=== PATIENT | female | born 1965 | race Caucasian/White ===

== ENCOUNTER → 2023-05-24 16:39 | Outpatient (REF) | payer BC, SELFPAY ==
[2023-05-24 17:28] LABS: % Basophils 0.8 % (0-2); % Eosinophils 7.1 % (0-6); % Immature Granulocytes 0.1 % (0-0.5); % Lymphocytes 26.9 % (20.5-51.1); % Monocytes 7.8 % (1.7-9.3); % Neutrophils 57.3 % (42.2-75.2); Absolute Basophils 0.1 10^3/uL (0-0.2); Absolute Eosinophils 0.5 10^3/uL (0-0.7); Absolute Monocytes 0.6 10^3/uL (0.1-0.6); Absolute Neutrophils 4.2 10^3/uL (1.4-6.5); Hematocrit 37.6 % (37.0-47.0); Mean Corp Hgb Conc. 31.9 g/dL (33.0-37.0); Mean Corpuscular Hgb 27.1 pg (27.0-31.0); Mean Corpuscular Volume 84.9 fL (81.0-99.0); Mean Platelet Volume 9.7 fL (7.4-10.4); Nucleated Red Blood Cells % 0 %; Platelet Count 325 10^3/uL (130-400); Red Blood Cell Count 4.43 10^6/uL (4.20-5.40); Red Cell Dist. Width 16.5 % (11.5-14.5); White Blood Cell Count 7.3 10^3/uL (4.8-10.8)
[2023-05-24 17:36] LABS: Erythrocyte Sed Rate 37 mm/hour (0-20)
[2023-05-24 17:41] LABS: ALT (SGPT) 15 U/L (0-35); AST (SGOT) 25 U/L (14-36); Albumin 3.8 g/dl (3.5-5.0); Alkaline Phosphatase 91 U/L (38-126); Blood Urea Nitrogen 14 mg/dl (7-17); Calcium 9.2 mg/dl (8.4-10.2); Carbon Dioxide 29 mmol/L (22-30); Chloride 102 mmol/L (98-107); Glucose 96 mg/dl (70-99); HDL Cholesterol 50 mg/dl; LDL Cholesterol, Calculated 62 mg/dl; Potassium 4.2 mmol/L (3.5-5.1); Sodium 136 mmol/L (135-145); Total Bilirubin 0.4 mg/dl (0.2-1.3); Total Cholesterol 139 mg/dl (50-199); Total Protein 7.5 g/dl (6.3-8.2); Triglyceride 139 mg/dl (10-149); Very Low Density Lipoprotein 27 mg/dl (0-30); eGFR > 60.00
[2023-05-24 18:30] LABS: Hepatitis B Core Ab, Total Negative (Negative); Hepatitis C Antibody Negative (Negative)
[2023-05-24 18:34] LABS: Hepatitis A Antibody, Total Negative (Negative)
== END ==
LOC: REG 16:39
PROVIDERS: ATTENDING PHYSICIAN Internal Medicine; FAMILY PHYSICIAN Student in an Organized Health Care Education/Training Program
DX: M05.79 Rheumatoid arthritis with rheumatoid factor of multiple sites without organ or systems involvement (principal); Z51.81 Encounter for therapeutic drug level monitoring
CPT/HCPCS: 36415; 80053; 80061; 85025; 85652; 86140; 86704; 86708; 86803

== ENCOUNTER → 2023-06-10 09:52 | Outpatient (REF) | payer BC, SELFPAY ==
[2023-06-13 18:18] LABS: Quantiferon Mitogen minus NIL 2.98 IU/mL; Quantiferon NIL 0.02 IU/mL; Quantiferon TB Gold Plus Negative (Negative)
== END ==
LOC: CLAB 09:52
PROVIDERS: ATTENDING PHYSICIAN Internal Medicine; FAMILY PHYSICIAN Student in an Organized Health Care Education/Training Program
DX: M05.79 Rheumatoid arthritis with rheumatoid factor of multiple sites without organ or systems involvement (principal); Z51.81 Encounter for therapeutic drug level monitoring
CPT/HCPCS: 36415; 86480

== ENCOUNTER → 2024-02-24 11:34 | Outpatient (REF) | payer BC, SELFPAY ==
[2024-02-24 12:18] LABS: ALT (SGPT) 16 U/L (0-35); AST (SGOT) 24 U/L (14-36); Albumin 4.2 g/dl (3.5-5.0); Alkaline Phosphatase 66 U/L (38-126); Blood Urea Nitrogen 20 mg/dl (7-17); Calcium 9.8 mg/dl (8.4-10.2); Carbon Dioxide 26 mmol/L (22-30); Chloride 104 mmol/L (98-107); Glucose 114 mg/dl (70-99); Potassium 4.9 mmol/L (3.5-5.1); Sodium 143 mmol/L (135-145); Total Bilirubin 0.3 mg/dl (0.2-1.3); Total Protein 7.6 g/dl (6.3-8.2); eGFR > 60.00
[2024-02-24 12:47] LABS: % Basophils 0.3 % (0-2); % Eosinophils 3.7 % (0-6); % Immature Granulocytes 0.3 % (0-0.5); % Lymphocytes 19.4 % (20.5-51.1); % Monocytes 7.8 % (1.7-9.3); % Neutrophils 68.5 % (42.2-75.2); Absolute Eosinophils 0.3 10^3/uL (0-0.7); Absolute Lymphocytes 1.7 10^3/uL (1.2-3.4); Absolute Monocytes 0.7 10^3/uL (0.1-0.6); Hematocrit 39.2 % (37.0-47.0); Hemoglobin 12.6 g/dL (12.0-16.0); Mean Corp Hgb Conc. 32.1 g/dL (33.0-37.0); Mean Corpuscular Hgb 29.4 pg (27.0-31.0); Mean Corpuscular Volume 91.6 fL (81.0-99.0); Mean Platelet Volume 10.7 fL (7.4-10.4); Nucleated Red Blood Cells % 0 %; Platelet Count 441 10^3/uL (130-400); Red Blood Cell Count 4.28 10^6/uL (4.20-5.40); Red Cell Dist. Width 15.9 % (11.5-14.5); White Blood Cell Count 8.7 10^3/uL (4.8-10.8)
[2024-02-24 13:18] LABS: Erythrocyte Sed Rate 29 mm/hour (0-20)
== END ==
LOC: CLAB 11:34
PROVIDERS: ATTENDING PHYSICIAN Internal Medicine; FAMILY PHYSICIAN Internal Medicine Geriatric Medicine
DX: M05.79 Rheumatoid arthritis with rheumatoid factor of multiple sites without organ or systems involvement (principal); Z51.81 Encounter for therapeutic drug level monitoring
CPT/HCPCS: 36415; 80053; 85025; 85652; 86140

== ENCOUNTER → 2024-05-08 19:36 | Outpatient (REF) | payer BC, SELFPAY | LOC: WDC 19:36 | PROVIDERS: ATTENDING PHYSICIAN Obstetrics & Gynecology Gynecology; FAMILY PHYSICIAN Internal Medicine Geriatric Medicine | DX: Z12.31 Encounter for screening mammogram for malignant neoplasm of breast (principal) | CPT/HCPCS: 77063; 77067 ==

== ENCOUNTER → 2024-06-26 12:44 | Outpatient (REF) | payer BC, SELFPAY ==
[2024-06-26 13:39] LABS: % Basophils 0.5 % (0-2); % Immature Granulocytes 0.2 % (0-0.5); % Lymphocytes 27.7 % (20.5-51.1); % Monocytes 9.3 % (1.7-9.3); % Neutrophils 56.3 % (42.2-75.2); Absolute Eosinophils 0.4 10^3/uL (0-0.7); Absolute Lymphocytes 1.8 10^3/uL (1.2-3.4); Absolute Monocytes 0.6 10^3/uL (0.1-0.6); Absolute Neutrophils 3.7 10^3/uL (1.4-6.5); Hematocrit 40.4 % (37.0-47.0); Hemoglobin 12.7 g/dL (12.0-16.0); Mean Corp Hgb Conc. 31.4 g/dL (33.0-37.0); Mean Corpuscular Volume 85.8 fL (81.0-99.0); Mean Platelet Volume 9.8 fL (7.4-10.4); Nucleated Red Blood Cells % 0 %; Platelet Count 320 10^3/uL (130-400); Red Blood Cell Count 4.71 10^6/uL (4.20-5.40); Red Cell Dist. Width 17.2 % (11.5-14.5); White Blood Cell Count 6.5 10^3/uL (4.8-10.8)
[2024-06-26 13:45] LABS: ALT (SGPT) 20 U/L (0-35); AST (SGOT) 25 U/L (14-36); Albumin 4.4 g/dl (3.5-5.0); Alkaline Phosphatase 79 U/L (38-126); Blood Urea Nitrogen 19 mg/dl (7-17); Calcium 9.8 mg/dl (8.4-10.2); Carbon Dioxide 24 mmol/L (22-30); Chloride 102 mmol/L (98-107); Glucose 106 mg/dl (70-99); Potassium 4.5 mmol/L (3.5-5.1); Sodium 138 mmol/L (135-145); Total Bilirubin 0.6 mg/dl (0.2-1.3); Total Protein 7.8 g/dl (6.3-8.2); eGFR > 60.00
[2024-06-26 14:40] LABS: Erythrocyte Sed Rate 30 mm/hour (0-20)
== END ==
LOC: CLAB 12:44
PROVIDERS: ATTENDING PHYSICIAN Internal Medicine; FAMILY PHYSICIAN Internal Medicine Geriatric Medicine
DX: M05.79 Rheumatoid arthritis with rheumatoid factor of multiple sites without organ or systems involvement (principal)
CPT/HCPCS: 36415; 80053; 85025; 85652; 86140

== ENCOUNTER → 2024-07-16 17:53 | Outpatient (REF) | payer BC, SELFPAY | LOC: RAD 17:53 | PROVIDERS: ATTENDING PHYSICIAN Internal Medicine; FAMILY PHYSICIAN Internal Medicine Geriatric Medicine | DX: M54.2 Cervicalgia (principal); M54.50 Low back pain, unspecified; M46.1 Sacroiliitis, not elsewhere classified; L40.50 Arthropathic psoriasis, unspecified; M06.9 Rheumatoid arthritis, unspecified | CPT/HCPCS: 72050; 72100; 72202 ==

== ENCOUNTER 2024-08-22 12:23 | Emergency (ER) | payer BC, SELFPAY ==
[2024-08-22 12:24] VITALS: BP 139/95
[2024-08-22 14:10] VITALS: BP 99/65; BMI 38.1
--- NOTE | 2024-08-22 14:20 | ED.GENMED ---
History of Present Illness
General
Chief Complaint: Allergic Reaction
Source: patient
Exam Limitations: none
Time Seen by Provider: 08/22/24 14:02
History of Present Illness
History of Present Illness:
59-year-old female with history of rheumatoid arthritis has been on Decadron for quite some time and weaned off of this and last dose of Decadron was 4 days ago. She has been under the care of rheumatology. She has had a rash for the past 3 weeks
at which they presume is from the Decadron. She has been using Benadryl and Pepcid regularly. She notes swelling to her arms and legs as well as a 10 pound weight gain in 4 days. She notes tightness in the throat and at times difficulty
breathing. No prior diagnosis of CHF. No vomiting. No chest pain. She states her skin feels tight. She also recently started Plaquenil and Arava for her rheumatoid arthritis.
Past History
Past History
ED Past Medical History: Other (Rheumatoid arthritis, fibromyalgia)
ED Past Surgical History: None
Social History
Tobacco: Non-smoker
Personal:
Living: with family
Phy Exam
Physical Exam
Physical Exam:
General: Well-appearing female no acute respiratory distress
HEENT normocephalic atraumatic posterior pharynx pale no obvious swelling
Heart: Regular rate and rhythm
Lungs clear no wheeze or rales skin: Urticarial rash over the arms and legs as well as the thorax
Extremities: Pitting edema bilateral lower extremities. The upper extremity seems swollen as well
Course
Orders/Labs/Results
Orders:
Orders
08/22/24 12:26
Electrocardiogram (*1) Urgent
Reason for Study: Palpitations
08/22/24 12:27
EKG- Treatment ONCE
08/22/24 14:18
CR Chest - 2 Views Urgent
Comment:
Reason For Exam: sob
08/22/24 14:19
Diphenhydramine [Benadryl] 25 mg IV NOW STA
Famotidine [Pepcid] 20 mg IV NOW STA
08/22/24 14:38
Complete Blood Count/With Diff Urgent
Comprehensive Metabolic Panel Urgent
NT-proBNP Urgent
EPINEPHrine PF [Adrenalin] 0.3 mg IM NOW STA
Abnormal Lab Results
08/22/24
14:38
MCHC 31.7 L g/dL
(33.0-37.0)
RDW 18.3 H %
(11.5-14.5)
Monocytes % 11.3 H %
(1.7-9.3)
Eosinophils % 12.1 H %
(0-6)
Carbon Dioxide 31 H mmol/L
(22-30)
Glucose 109 H mg/dl
(70-99)
ALT 36 H U/L
(0-35)
08/22/24 14:38
08/22/24 14:38
Vital Signs
Initial and Last Documented VS:
Initial Vital Signs
Temp Pulse Resp BP Pulse Ox
98.3 F 104 18 139/95 100
08/22/24 12:24 08/22/24 12:24 08/22/24 12:24 08/22/24 12:24 08/22/24 12:24
Last Documented Vital Signs
Temp Pulse Resp BP Pulse Ox
98.3 F 104 18 125/74 100
08/22/24 12:24 08/22/24 16:06 08/22/24 16:06 08/22/24 16:06 08/22/24 16:06
MDM/Problems Addressed
Differential Diagnosis Includes:
Rash, ongoing, weight gain and edema. The ongoing thought is that the rash may be from her Decadron and she just tapered off of. She did start a new rheumatoid arthritis medication several weeks ago as well as she takes ongoing lisinopril. She
subjectively describes throat multi breathing. There is no respiratory distress. She reacted adversely to prednisone in the past. Labs including bnp pending. Treat initially with IV benadryl and pepcid
*Critical Care Note
Total Time (30-74mins, 75-104mins- exclusive of procedures): Not Applicable
Update Note
Update Note:
Patient reexamined no respiratory distress. She received Benadryl Pepcid and subsequently epinephrine. Subjectively her throat feels better but the rash has not improved. She has reacted to prednisone Solu-Medrol and Decadron. She also is on
lisinopril. No signs of airway compromise at this time. Rash is ongoing. Will continue Benadryl and Pepcid. Stable for discharge
ED Attending Note
-
Portions of this chart may have been created with voice recognition software.� Occasional wrong word or��sound alike� substitutions may have occurred due to the inherent limitations of voice recognition software.
Discharge Plan
Departure
Patient Disposition: Home (Routine Discharge)
Date of Disposition: 08/22/24
Time of Disposition: 16:53
Patient with high blood pressure during this ER visit?: No
Discharge Problem:
Urticaria, Edema
Instructions: Hives (DC)
Prescriptions:
New
furosemide [Lasix] 40 mg tablet
40 mg PO DAILY Qty: 5 0RF
No Action
duloxetine 60 MG capsule,delayed release(DR/EC)
60 mg PO BID
gabapentin 300 MG capsule
300 mg PO HS
cetirizine [Zyrtec] 10 mg Tablet
10 mg PO HS
lisinopril 10 mg Tablet
10 mg PO DAILY
infliximab [Remicade] 100 mg Recon Soln
100 mg IV Q6W
Patient Comments:
Q6-8 WEEKS
rosuvastatin 10 mg Tablet
10 mg PO QPM
diphenhydramine HCl [Benadryl] 25 mg Capsule
25 mg PO PRN PRN (Reason: PRE INFUSION)
Referrals:
Brown Sotelo MD [Family Provider] -
Activity Restrictions/Additional Instructions:
Take lasix as directed. Continue benadryl and pepcid. Return if needed, otherwise follow up with your doctor as planned.
Interventions
Interventions:
*Risk Screen - Suicide Last Done: 08/22/24 12:24
*General Assessment Last Done: 08/22/24 12:24
*Neglect/Abuse Screening Last Done: 08/22/24 12:24
*ED- Fall Risk Assessment Last Done: 08/22/24 14:10
*ED COVID-19 Vaccine History Last Done: 08/22/24 12:24
ED- Cardiac Assessment Last Done: 08/22/24 14:10
ED- Pulmonary Assessment Last Done: 08/22/24 14:10
ED-Skin Assessment Last Done: 08/22/24 14:10
Discharge Date and Time
Print Language: [place] CITIZ[place]
[2024-08-22 14:41] LABS: % Basophils 0.5 % (0-2); % Eosinophils 12.1 % (0-6); % Immature Granulocytes 0.4 % (0-0.5); % Lymphocytes 30.4 % (20.5-51.1); % Monocytes 11.3 % (1.7-9.3); % Neutrophils 45.3 % (42.2-75.2); Absolute Eosinophils 0.7 10^3/uL (0-0.7); Absolute Lymphocytes 1.7 10^3/uL (1.2-3.4); Absolute Monocytes 0.6 10^3/uL (0.1-0.6); Absolute Neutrophils 2.5 10^3/uL (1.4-6.5); Hematocrit 41.9 % (37.0-47.0); Hemoglobin 13.3 g/dL (12.0-16.0); Mean Corp Hgb Conc. 31.7 g/dL (33.0-37.0); Mean Corpuscular Hgb 27.9 pg (27.0-31.0); Mean Corpuscular Volume 87.8 fL (81.0-99.0); Mean Platelet Volume 9.3 fL (7.4-10.4); Nucleated Red Blood Cells % 0 %; Platelet Count 239 10^3/uL (130-400); Red Blood Cell Count 4.77 10^6/uL (4.20-5.40); Red Cell Dist. Width 18.3 % (11.5-14.5); White Blood Cell Count 5.6 10^3/uL (4.8-10.8)
[2024-08-22] MEDS: BENADRYL 25 MG IV (14:56)
[2024-08-22] MEDS: PEPCID 20 MG IV (14:56)
[2024-08-22] MEDS: ADRENALIN 0.3 MG IM (14:56)
[2024-08-22 15:14] LABS: ALT (SGPT) 36 U/L (0-35); AST (SGOT) 30 U/L (14-36); Albumin 3.7 g/dl (3.5-5.0); Alkaline Phosphatase 87 U/L (38-126); Blood Urea Nitrogen 9 mg/dl (7-17); Calcium 9.1 mg/dl (8.4-10.2); Carbon Dioxide 31 mmol/L (22-30); Chloride 103 mmol/L (98-107); Estimated Creatinine Clearance 102 ml/min; Glucose 109 mg/dl (70-99); Sodium 137 mmol/L (135-145); Total Bilirubin 0.5 mg/dl (0.2-1.3); Total Protein 6.4 g/dl (6.3-8.2); eGFR > 60.00
[2024-08-22 15:15] LABS: NT-proBNP 74.5 pg/ml
[2024-08-22 15:28] VITALS: BP 111/78
[2024-08-22 16:06] VITALS: BP 125/74
[2024-08-22 17:11] VITALS: BP 110/70
== END 2024-08-22 17:13 | disposition home or self-care (01) ==
LOC: EMR 12:23
PROVIDERS: Physician Assistant; EMERGENCY PHYSICIAN Emergency Medicine; FAMILY PHYSICIAN Internal Medicine Geriatric Medicine
DX: L50.9 Urticaria, unspecified (principal); M79.7 Fibromyalgia; M06.9 Rheumatoid arthritis, unspecified
CPT/HCPCS: 99283; 96374; 96375; 96372; 71046; 80053; 83880; 85025; 93005

== ENCOUNTER → 2024-12-12 09:38 | Outpatient (REF) | payer BC, SELFPAY ==
[2024-12-12 10:30] LABS: Hematocrit 40.0 % (37.0-47.0); Hemoglobin 12.3 g/dL (12.0-16.0); Mean Corp Hgb Conc. 30.8 g/dL (33.0-37.0); Mean Corpuscular Volume 92.4 fL (81.0-99.0); Nucleated Red Blood Cells % 0 %; Platelet Count 329 10^3/uL (130-400); Red Cell Dist. Width 15.3 % (11.5-14.5)
[2024-12-12 10:34] LABS: Urine Character Clear (Clear)
[2024-12-12 10:55] LABS: Urine Red Blood Cell 0-2 /HPF (0-2)
[2024-12-12 11:27] LABS: ALT (SGPT) 26 U/L (0-35); AST (SGOT) 28 U/L (14-36); Albumin 3.7 g/dl (3.5-5.0); Alkaline Phosphatase 70 U/L (38-126); Blood Urea Nitrogen 8 mg/dl (7-17); Calcium 9.5 mg/dl (8.4-10.2); Carbon Dioxide 30 mmol/L (22-30); Chloride 107 mmol/L (98-107); Glucose 101 mg/dl (70-99); Potassium 4.6 mmol/L (3.5-5.1); Sodium 141 mmol/L (135-145); Total Protein 6.6 g/dl (6.3-8.2); eGFR > 60.00
== END ==
LOC: REG 09:38
PROVIDERS: ATTENDING PHYSICIAN Nurse Practitioner Family; FAMILY PHYSICIAN Internal Medicine Geriatric Medicine
DX: I10 Essential (primary) hypertension (principal); E78.00 Pure hypercholesterolemia, unspecified; E55.9 Vitamin D deficiency, unspecified; M06.9 Rheumatoid arthritis, unspecified; R30.0 Dysuria
CPT/HCPCS: 36415; 80053; 81003; 81015; 83880; 84443; 85025; 86308

== ENCOUNTER 2024-12-16 14:16 | Inpatient (IN) | payer BC, SELFPAY ==
[2024-12-16] VITALS (11 sets, daily range): BP systolic 102–139; BP diastolic 62–94; BMI 42.8; BMI 41.8
[2024-12-16] MEDS: TYLENOL 1000 MG PO (08:52)
[2024-12-16] MEDS: TORADOL 15 MG IV ×2 (08:52→21:39)
[2024-12-16 09:05] LABS: Hematocrit 36.5 % (37.0-47.0); Hemoglobin 11.7 g/dL (12.0-16.0); Mean Corp Hgb Conc. 32.1 g/dL (33.0-37.0); Mean Corpuscular Volume 89.9 fL (81.0-99.0); Nucleated Red Blood Cells % 0 %; Platelet Count 280 10^3/uL (130-400); Red Cell Dist. Width 15.1 % (11.5-14.5)
[2024-12-16 09:24] LABS: ALT (SGPT) 21 U/L (0-35); AST (SGOT) 29 U/L (14-36); Albumin 3.5 g/dl (3.5-5.0); Alkaline Phosphatase 59 U/L (38-126); Blood Urea Nitrogen 8 mg/dl (7-17); Calcium 8.9 mg/dl (8.4-10.2); Carbon Dioxide 29 mmol/L (22-30); Chloride 104 mmol/L (98-107); Estimated Creatinine Clearance 123 ml/min; Glucose 108 mg/dl (70-99); Magnesium 1.8 mg/dl (1.6-2.3); Potassium 4.4 mmol/L (3.5-5.1); Sodium 136 mmol/L (135-145); Total Protein 6.6 g/dl (6.3-8.2); eGFR > 60.00
--- NOTE | 2024-12-16 09:34 | ED.GENMED ---
History of Present Illness
General
Chief Complaint: Musculo-Skeletal Complaint
Source: patient
Exam Limitations: none
Time Seen by Provider: 12/16/24 08:06
Nursing documentation reviewed up to this point in time: agreed with
History of Present Illness
History of Present Illness:
Patient presents to ED secondary to worsening left-sided chest pain over the past 2 weeks. Chest pain described as sharp, nonradiating, worse with movement/inspiration, without any alleviating factors. Denies trauma. Denies fever or chills.
Denies nausea or vomiting. Denies recent surgery or travel. Patient has also noted increased lower leg swelling over the past 1 week along with unintentional weight gain of approximately 30 pounds over the past 2 months. Denies recent changes in
medications or diet. Denies recent illness. Patient has been evaluated by her primary care physician and recent blood work and swabs had revealed positive group B strep, for which she is taking Keflex. Denies smoking. There is no family history
of blood clots. However, there is history of early cardiac disease.
Past History
Past History
ED Past Medical History: Other (Rheumatoid arthritis, fibromyalgia)
ED Past Surgical History: None
Social History
Tobacco: Non-smoker
Personal:
Living: with family
Review of Systems
Review of Systems
Allergies reviewed?: Yes
All Other Systems: ROS reviewed and negative except as documented in HPI and ROS
Constitutional: Reports no symptoms; Denies fever
Respiratory: Reports trouble breathing
Cardiac: Reports chest pain
ABD/GI: Reports no symptoms; Denies nausea or vomiting
: Reports no symptoms
Musculoskeletal: Reports no symptoms
Skin: Reports no symptoms
Neurological: Reports no symptoms
Phy Exam
Physical Exam
Physical Exam:
Physical Exam
General: mild painful distress, not acutely ill. afebrile
Head: nc/at. eomi
Neck: supple. no meningeal signs.
Heart: tachycardic
Lungs: no acute respiratory distress. clear bilaterally
Abdomen: normal bowel sounds. not tender.
Neuro: alert and oriented x 3. no focal neurological deficits
Skin: no rash
Psychiatric: well kept. interactive and cooperative
Extremities: LE b/l, nonpitting edema. no calf tenderness.
Scores
Heart Failure Risk
Heart Failure Risk Score: Yes
History of Stroke or TIA: No
History of intubation for respiratory distress: No
Heart rate on ED arrival >/= 110: Yes
SaO2 <90% on arrival on room air: Yes
HR >/=110 during 3min walk test (or too ill to perform test): Yes
ECG has acute ischemic changes: No
Urea >/=12mmol/L (BUN 33.6mg/dL): No
Serum CO2>/=35mmol/L: No
Troponin I or T elevated to GA Level (0.4mg/dL): No
NT-proBNP >/=5,000ng/L (5,000pg/ml): No
HF Risk Score: 3
Admission Status: HIGH RISK 15.9% Consider SNF treatment or admission to hospital
Heart Score for Chest Pain Patients
STEMI patient?: No
History: Slightly or Non-Suspicious
ECG: Normal
Age: >45 - <65 years
Risk Factors: >/= 3 Risk Factors or History of CAD
Troponin: </= Normal Limit
Heart Score for Chest Pain Patients: 3
Heart Score Risk: 2.5% MACE over next 6 weeks
Course
Orders/Labs/Results
Orders:
Orders
12/16/24 08:01
ECG [Electrocardiogram (*1)] Urgent
Reason for Study: Chest Pain
EKG- Treatment ONCE
12/16/24 08:35
Acetaminophen [Tylenol] 1,000 mg PO NOW STA
Ketorolac [Toradol] 15 mg IV NOW STA
CR Chest - 2 Views Urgent
Comment:
Reason For Exam: chest pain
12/16/24 08:54
Complete Blood Count/With Diff Urgent
Comprehensive Metabolic Panel Urgent
D-Dimer Urgent
Magnesium Urgent
NT-proBNP Urgent
Troponin I Urgent
12/16/24 10:00
CT Chest PE Study Urgent
Comment:
Reason For Exam: cp with elevated d-dimer
12/16/24 13:37
Furosemide [Lasix] 20 mg IV NOW STA
12/16/24 13:48
Admit/Transfer Patient As Directed
Co-Sign Provider:
Level of Care: Inpatient admission
Assign to:: Telemetry
Physician / Group: Hospitalist Dr. El
Diagnosis: Shortness of breath , chest pain, volume overload
Reason for Telemetry: Chest Pain syndromes
Date to Stop Telemetry: 12/18/24
Time to Stop Telemetry: 11:00
Reason for Hospitalization: Iv diuresis, echo, frequent lab monitoring
Expected length of stay greater than two midnights?: Yes
ELOS- Estimated Length of Stay in days: 3
I certify the patient meets the requirements for IP care: Yes
PRN Pain Medication Management As Directed
May give lesser potent ordered pain med per pt: Yes
preference::
Protocol:: Medication orders for pain may be administered in a
manner that supports deferring to patient preference
when the pt is:
- Requesting an ordered lesser potent pain medication.
Least to most potent pain medications are defined
as: acetaminophen < NSAID < tramadol < opioids
(morphine, oxycodone, hydromorphone).
- Requesting a lesser dose of the same medication IF
ORDERED.
- Requesting a less intrusive route of administration
if both routes are prescribed by the provider (PO <
IV).
12/16/24 13:53
Code Status As Directed
Resuscitation Status: Full Code
12/18/24 11:00
DC Protocol for Telemetry ONCE
Abnormal Lab Results
12/16/24
08:54
RBC 4.06 L 10^6/uL
(4.20-5.40)
Hgb 11.7 L g/dL
(12.0-16.0)
Hct 36.5 L %
(37.0-47.0)
MCHC 32.1 L g/dL
(33.0-37.0)
RDW 15.1 H %
(11.5-14.5)
Absolute Monos (auto) 1.0 H 10^3/uL
(0.1-0.6)
Lymphocytes % 20.2 L %
(20.5-51.1)
Monocytes % 11.3 H %
(1.7-9.3)
Eosinophils % 6.1 H %
(0-6)
D-Dimer 1.99 H ug/mlFEU
(0.00-0.50)
Glucose 108 H mg/dl
(70-99)
12/16/24 08:54
12/16/24 08:54
Vital Signs
Initial and Last Documented VS:
Initial Vital Signs
Temp Pulse Resp BP Pulse Ox
98.1 F 118 20 139/86 98
12/16/24 07:57 12/16/24 07:57 12/16/24 07:57 12/16/24 07:57 12/16/24 07:57
Last Documented Vital Signs
Temp Pulse Resp BP Pulse Ox
98.1 F 89 21 120/69 95
12/16/24 07:57 12/16/24 14:15 12/16/24 14:15 12/16/24 14:00 12/16/24 14:15
MDM/Problems Addressed
MDM/Problems Addressed:
D-dimer elevated. CT PE study ordered, which did not reveal any acute abnormal findings. However, patient remains tachycardic with hypoxia, requiring supplemental oxygen. In light of patient's unintentional weight gain with lower extremity edema,
patient may require full course of diuresis. Patient will be admitted for further evaluation and treatment.
*Pulse Oximetry
SaO2: 98
Oxygen Mode of Delivery: Room air
Patient hypoxic: yes
*EKG
Interpreted by ED Provider?: Yes
EKG Intrepretation Date: 12/16/24
Heart Rate: 107
Rate: tachycardiac
Rhythm: sinus
[place]: normal axis
Interval: normal interval
*Critical Care Note
Total Time (30-74mins, 75-104mins- exclusive of procedures): Not Applicable
ED Attending Note
-
Portions of this chart may have been created with voice recognition software.� Occasional wrong word or��sound alike� substitutions may have occurred due to the inherent limitations of voice recognition software.
Discharge Plan
Departure
Patient Disposition: Admit
Date of Disposition: 12/16/24
Time of Disposition: 11:26
Admit to: Telemetry
Presentation/result/management discussed w/ accepting MD/DO: Hospitalist
Discharge Problem:
Hypoxia, Chest pain
Interventions
Interventions:
*Risk Screen - Suicide Last Done: 12/16/24 07:57
*General Assessment Last Done: 12/16/24 07:57
*Neglect/Abuse Screening Last Done: 12/16/24 08:44
*ED- Fall Risk Assessment Last Done: 12/16/24 08:44
*ED COVID-19 Vaccine History Last Done: 12/16/24 08:44
ED-Musculoskeletal Assessment Last Done: 12/16/24 08:44
[2024-12-16 09:37] LABS: Troponin I < 0.012 ng/ml
[2024-12-16 09:57] LABS: D-Dimer 1.99 ug/mlFEU (0.00-0.50)
[2024-12-16] MEDS: LASIX 20 MG IV ×2 (13:45→16:00)
--- NOTE | 2024-12-16 13:46 | HPS.HSE ---
Addendum entered and electronically signed by Diana El MD 12/16/24 18:45:
I personally performed a history and physical exam of the patient and discussed management with the resident. I reviewed the resident's note and agree with the documented findings and plan of care HPI/CC.
GENERAL: well developed, well nourished, obese female in no apparent distress
HEENT: NC/AT -- O2 NC in place
HEART: regular rate and rhythm, +S1, +S2
LUNGS : clear to auscultation bilaterally
ABDOM: soft, nontender, nondistended, + bowel sounds
EXT: no cyanosis, clubbing--2+ LE edema bilaterally with cool redness to both legs from ankles to mid grijalva--reproducible pain to palpation under left breast
NEUROLOGIC: grossly intact
Chest pain/SOB with acute hypoxemic resp insufficiency--Volume overload likely secondary to recent steroid use--pro-BNP WNL so not thinking traditional CHF exacerbation--ADMIT--check ECHO--diuresis, daily weights, I/Os--other possible etiologies
include: musculoskeletal, pericarditis (recent group B strep throat), GERD, pleuritis from RA flare--> less likely PE (neg CT scan), ACS (troponin neg)--check serial troponin, consider cards consult, add PPI celine with steroid use--check ESR, CRP
Recent Strep throat diagnosis with Group B strep--finish Cephalexin course (should cover leg cellulitis but doubt it is cellulitis in the first place)--day 07/26
bilateral LE edema with redness--think more volume retention--if no better with diuresis then check bilateral LE US
possible Obstructive Sleep Apnea--O2 desaturation while sleeping--will need outpt sleep study
Rheumatoid Arthritis/Fibromyalgia--had recent infusion with allergic reaction, which prompted steroid use in the first place, then was allergic to the steroids and switched to another--cont duloxetine
History of AK (2019)/Essential Hypertension--cont meds as able
DVT Proph-- Lovenox
Code status--Full Code
Original Note:
Family Physician
-
Family Physician: Brown Sotelo
Chief Complaint
-
Shortness of breath, Chest pain
History of Present Illness
A 59 y/o female with PMH of Rheumatoid Arthritis, Fibromyalgia, heart attack in 2019, hypertension, hyperlipidemia presents to ED with complaints of shortness of breath, chest pain and bilateral leg swelling. Last night she developed shortness of
breath, worse with inhaling. She could not fall asleep from pain, it was limiting her movements all night. She took 2 baclofen 5 mg, tramadol, it made her sleepy but did not improve her pain. She reports her pain is worse on the left side but it
radiates towards right and back. Pain is sharp and stabbing. Her pain, SOB improves with sitting upright. Also, she has nausea that is worse at night.
Chest pain started 2 weeks ago when she woke up. A week ago she noticed her legs were red and swollen bilaterally. Denies pain. She went to see her PCP, labs were normal, echo was schedule for december. She was tested for strep throat culture was
positive for strep B. She is taking cephalexin 500 mg BID/ since 12/13.
She tried multiple meds for rheumatoid Arthritis without improvement. She tried IV infusion developed rashes. Wash out period was 1 month. She was started on 60mg Dexamethasone. Then she started Arava again developed hives wash out period was 2
weeks. So she was on a supervisor long goods Dexamethasone use, recently she tapered it off.
She has low appetite but gained 30 pounds in last 3 months. 20lbs of it was last 6 weeks.
Medical History
Past Medical History
Past Medical History: Reports Fibromyalgia, HTN, Hypercholesterolemia, AK and Other (rheumatoid arthritis)
Past Surgical History: Reports Orthopedic (broken finger)
Social History
Tobacco: Non-smoker
Alcohol: Occasional
Drug: None
Family History
Family History: Early CAD, CAD, Hypertension and Other (mother-TIA, HTN, CABG)
Allergies / Home Medications
Allergies reflects when Allergies were last updated in [facility].
Home Medications with original date entered in [facility]
Allergy/Medication List:
Prednisone- lip swelling, flushing
Review of Systems
-
History Source: Patient
Constitutional: Reports Weight Gain and Sleep Disturbance
Respiratory: Reports Trouble Breathing
Cardiac: Reports Chest Pain
Abdomen/GI: Reports Nausea and Pain
: Reports No Symptoms
Musculoskeletal: Reports Joint Pain, Muscle Pain and Edema
Skin: Reports Rash
Neurological: Reports No Symptoms
Endocrine: Reports No Symptoms
Hematologic/Lymphatic: Reports No Symptoms
Psych: Reports Calm
Physical Exam
Vital Signs
Vital Signs
Temp Pulse Resp BP Pulse Ox
98.1 F 91 16 121/65 92
12/16/24 07:57 12/16/24 13:00 12/16/24 13:00 12/16/24 13:00 12/16/24 13:00
Physical Exam
General: Well Developed and Well Nourished
HEENT: NormoCephalic, Oxygen and Other (tonsil stones, enlarged tonsils)
Respiratory: Clear
Cardiac: S1/S2, Regular Rhythm and Peripheral Edema
Breast: Deferred by me
GI: Soft, Non Tender and Non Distended
Genito-urinary: Deferred by me
Musculoskeletal: Edema, Left Lower Extremity and Edema, Right Lower Extremity
Skin: Warm, Dry and Rash (bilateral leg erythema ankle to grijalva)
Neuro: Awake and AO x 3
Hematologic/Lymphatic: No Lymphadenopathy
Psych: Calm
Laboratory Results
-
12/16/24 08:54
12/16/24 08:54
Laboratory Results
Total Bilirubin 0.8 mg/dl (0.2-1.3) 12/16/24 08:54
AST 29 U/L (14-36) 12/16/24 08:54
ALT 21 U/L (0-35) 12/16/24 08:54
Alkaline Phosphatase 59 U/L (38-126) 12/16/24 08:54
Troponin I < 0.012 ng/ml 12/16/24 08:54
Impression/Plan
-
Impression
59-year-old female with past medical history of rheumatoid arthritis, fibromyalgia, prior AK in 2019, hypertension, hyperlipidemia presents with shortness of breath chest pain and bilateral leg swelling. Chest pain is sharp, left-sided, worse with
inspiration, radiating to the back, improved sitting upright. She also reports nausea and poor sleep due to pain. Exam and history suggest possible pleuritic chest pain. She also has bilateral leg swelling with a recent weight gain., Raising
concern for heart failure, nephrotic syndrome, or steroid side effects. She has a history of long-term high-dose dexamethasone, recently tapered, and was on leflunomide (Arava).
PLAN
#Volume overload likely secondary to Chronic Steroid use / Possible CHF
-Daily weight, watch I/O
-Lasix 20mg BID
-ECHO
-Monitor electrolytes, renal function
#Chest Pain, Pleuritic, Positional
Differential: Pericarditis vs musculoskeletal vs ACS
-EKG, serial troponin
-PPI (GI irritation with steroid use?)
-CXR-No acute cardiopulmonary process
-Chest CT- No PE or acute abnormality
-Cardiology consult if troponins/EKG abnormal
#Pleuritis from RA
-monitor
-pain control
-ESR/CRP
#DVT-PE
-D- Dimer elevated
-Chest CT - negative for PE
#Acute Pancreatitis
-less likely but will check lipase
-if elevated will consider abdominal USG
#Strep B throat
- 12/13 Cephalexin 500mg BID, PO, 10days
-Continue#D4
#Obstructive Sleep Apnea
-O2 desaturation while sleeping
-O2 prn
#Rheumatoid Arthritis
#Fibromyalgia
#History of AK (2019)
#Hypertension
DVT Prophylaxis: Lovenox
Full Code
--- NOTE | 2024-12-16 15:36 | PTCARENOTE ---
pt presents from ED via stretcher. pt is AAO*3, vss, 99% on 1LO2. pt c/o PAGAN, shallow breathing. pt states pain on b/l chest with deep breaths. pt is oriented to the room. call cutler within the reach. plan of care ongoing.
[2024-12-16 16:30] LABS: Troponin I < 0.012 ng/ml
[2024-12-16 16:45] LABS: Lipase 55 U/L (23-300)
[2024-12-16] MEDS: LOVENOX 40 MG SC (17:30)
[2024-12-16] MEDS: CRESTOR 10 MG PO (17:31)
[2024-12-16] MEDS: ZYRTEC 10 MG PO (20:18)
[2024-12-16] MEDS: KEFLEX 500 MG PO (20:18)
[2024-12-16] MEDS: TYLENOL 650 MG PO (21:39)
[2024-12-16 21:51] LABS: Troponin I < 0.012 ng/ml
[2024-12-17] VITALS (7 sets, daily range): BP systolic 105–145; BP diastolic 66–89; PULSE 97–98; O2SAT 96–100; BMI 42.2; BMI 42.0
--- NOTE | 2024-12-17 07:23 | W.PN.HOSP.TC ---
Addendum entered and electronically signed by Waqas Blake DO 12/18/24 13:42:
CDI: Morbid obesity
Original Note:
Today's Communication/Plan
-
Waiting for echo beto
Tomorrow possible discharge
Continue Lasix
Watch weight daily
KAMARI testing o/p
Assessment / Plan
Assessment / Plan
Impression
59-year-old female with past medical history of rheumatoid arthritis, fibromyalgia, prior [place] in 2019, hypertension, hyperlipidemia presents with shortness of breath chest pain and bilateral leg swelling. Chest pain is sharp, left-sided, worse with
inspiration, radiating to the back, improved sitting upright. She also reports nausea and poor sleep due to pain. Exam and history suggest possible pleuritic chest pain. She also has bilateral leg swelling with a recent weight gain., Raising
concern for heart failure, nephrotic syndrome, or steroid side effects. She has a history of long-term high-dose dexamethasone, recently tapered, and was on leflunomide (Arava).
PLAN
#Volume overload likely secondary to Chronic Steroid use / Possible CHF
-Daily weight, watch I/O
-Lasix 20mg BID
-ECHO- scheduling pending
-Monitor electrolytes, renal function
-CRP elevated
#Chest Pain, Pleuritic, Positional
Differential: Pericarditis vs musculoskeletal vs ACS
-EKG, serial troponin- negative
-continue PPI (GI irritation with steroid use?)
-CXR-No acute cardiopulmonary process
-Chest CT- No PE or acute abnormality
-Cardiology consult if troponins/EKG abnormal
#Pleuritis from RA
-monitor
-pain control
-ESR/CRP
#DVT-PE
-bilateral leg swelling--slightly improved-- if no improvement order b/l LE US
-D- Dimer elevated
-Chest CT - negative for PE
#Acute Pancreatitis
-less likely but will check lipase--negative
-if elevated will consider abdominal USG
#Strep B throat
- 12/13 Cephalexin 500mg BID, PO, 10days
-Continue#D5
#Possible Obstructive Sleep Apnea
-O2 desaturation while sleeping
-O2 prn
-KAMARI testing rec
#Rheumatoid Arthritis
#Fibromyalgia
-Continue Duloxetine
#History of [place] (2019)
#Hypertension
- Continue Lisinopril
DVT Prophylaxis: Lovenox
Full Code
Anticipated Discharge: 24 - 48 hours
Subjective/Interval History
-
Date of Service: December 17, 2024
She could not sleep all night. She feels tired and wants to go home. Per nurse her O2 decreases when she falls a sleep and she required Oxygen NC. She snores a lot. Legs erythema improved. Her legs look less swollen per patient. Walking helps. Her
urine is darker, she drank only a cup of water today.
Objective Data
-
Labs:
Laboratory Results
12/17/24
06:00
WBC Pending
Hgb Pending
Hct Pending
Plt Count Pending
Sodium Pending
Potassium Pending
Chloride Pending
Carbon Dioxide Pending
BUN Pending
Creatinine Pending
Glucose Pending
Calcium Pending
Vital Signs:
Vital Signs
Temp Pulse Resp BP Pulse Ox
98 F 93 16 126/73 99
12/17/24 04:06 12/17/24 04:06 12/17/24 04:06 12/17/24 04:06 12/17/24 04:06
I&O
12/16/24 12/17/24 12/18/24
06:59 06:59 06:59
Intake Total 720 / 720
Output Total 450 / 450
Balance 270 / 270
Review of Systems
-
History Source: Patient
Constitutional: Reports Fatigue and Sleep Disturbance
EENT: Reports No Symptoms Reported
Respiratory: Reports No Symptoms
Cardiac: Reports Chest Pain
Abdomen/GI: Reports No Symptoms and Abdominal Pain (LUQ)
Breast: Reports No Symptoms
Genitourinary: Reports No Symptoms
Musculoskeletal: Reports Muscle Pain
Skin: Reports No Symptoms
Neuro: Reports No Symptoms
Endocrine: Reports No Symptoms
Hematologic / Lymphatic: Reports No Symptoms
Physical Exam
-
General: Well Developed, Well Nourished and Comfortable
HEENT: Normocephalic and Atraumatic
Respiratory: Clear to Auscultation
Cardiac: Regular Rhythm and S1/S2
Breast: Deferred by me
GI: Soft, Nontender, Nondistended and Normal Bowel Sounds
Rectal: Deferred by Provider
Genito-urinary: Deferred by me
Musculoskeletal: Edema, Right Lower Extrem and Edema, Left Lower Extrem
Skin: Warm
Neuro: AO x 3
Psych: Calm
[2024-12-17 08:11] LABS: Hematocrit 37.7 % (37.0-47.0); Hemoglobin 11.7 g/dL (12.0-16.0); Mean Corp Hgb Conc. 31.0 g/dL (33.0-37.0); Mean Corpuscular Volume 92.2 fL (81.0-99.0); Platelet Count 267 10^3/uL (130-400); Red Cell Dist. Width 15.0 % (11.5-14.5)
[2024-12-17] MEDS: ZESTRIL 10 MG PO (08:16)
[2024-12-17] MEDS: TYLENOL 650 MG PO ×2 (08:16→22:05)
[2024-12-17] MEDS: VITAMIN D3 (cholecalciferol) 50 MCG PO (08:17)
[2024-12-17] MEDS: KEFLEX 500 MG PO ×2 (08:17→20:19)
[2024-12-17] MEDS: PROTONIX 40 MG PO (08:17)
[2024-12-17] MEDS: LASIX 20 MG IV ×2 (08:17→16:17)
[2024-12-17] MEDS: CYMBALTA DELAYED RELEASE 60 MG PO (08:17)
[2024-12-17 08:34] LABS: Blood Urea Nitrogen 10 mg/dl (7-17); Calcium 9.1 mg/dl (8.4-10.2); Carbon Dioxide 32 mmol/L (22-30); Chloride 105 mmol/L (98-107); Estimated Creatinine Clearance 104 ml/min; Glucose 103 mg/dl (70-99); HDL Cholesterol 40 mg/dl; LDL Cholesterol, Calculated 48 mg/dl; Magnesium 2.0 mg/dl (1.6-2.3); Potassium 4.1 mmol/L (3.5-5.1); Sodium 139 mmol/L (135-145); Very Low Density Lipoprotein 18 mg/dl (0-30); eGFR > 60.00
[2024-12-17 08:37] LABS: C-Reactive Protein 64.70 mg/L (0.0-10.00)
[2024-12-17] MEDS: CRESTOR 10 MG PO (17:36)
[2024-12-17] MEDS: ZOFRAN 4 MG PO (17:36)
[2024-12-17] MEDS: LOVENOX 40 MG SC (18:28)
[2024-12-17] MEDS: ZYRTEC 10 MG PO (20:19)
[2024-12-18 03:00] VITALS: BP 115/70
[2024-12-18] MEDS: TORADOL 15 MG IV (03:53)
[2024-12-18] MEDS: TYLENOL 650 MG PO (04:05)
[2024-12-18 06:00] VITALS: BMI 41.9
[2024-12-18 07:00] VITALS: BP 122/63
--- NOTE | 2024-12-18 07:21 | W.PN.HOSP.TC ---
Today's Communication/Plan
-
Cardiology outpatient f/u
Lasix 40mg PO QD
Discharge
Assessment / Plan
Assessment / Plan
Impression
59-year-old female with past medical history of rheumatoid arthritis, fibromyalgia, prior VA in 2020, hypertension, hyperlipidemia presents with shortness of breath chest pain and bilateral leg swelling. Chest pain is sharp, left-sided, worse with
inspiration, radiating to the back, improved sitting upright. She also reports nausea and poor sleep due to pain. Exam and history suggest possible pleuritic chest pain. She also has bilateral leg swelling with a recent weight gain., Raising
concern for heart failure, nephrotic syndrome, or steroid side effects. She has a history of long-term high-dose dexamethasone, recently tapered, and was on leflunomide (Arava).
PLAN
#Volume overload likely secondary to Chronic Steroid use / Possible CHF
-Daily weight, watch I/O
-Lasix 20mg BID
-ECHO- LV EF 58%, compared to 2020 no change. Mild concentric LV hypertrophy.
-Monitor electrolytes, renal function
-CRP elevated
-Weight decreased 1 lb
-Change lasix to 40mg PO QD
-symptoms improved
#Chest Pain, Pleuritic, Positional
Differential: Pericarditis vs musculoskeletal vs ACS
-EKG, serial troponin- negative
-continue PPI (GI irritation with steroid use?)
-CXR-No acute cardiopulmonary process
-Chest CT- No PE or acute abnormality
-Cardiology consult if troponins/EKG abnormal-- normal
-rec Cardiology outpatient f/u
#Pleuritis from RA
-monitor
-pain control
-ESR/CRP- elevated- possible from RA
#DVT-PE
-bilateral leg swelling--slightly improved-- if no improvement order b/l LE US
-D- Dimer elevated
-Chest CT - negative for PE
#Acute Pancreatitis
-less likely but will check lipase--negative
-if elevated will consider abdominal USG
#Strep B throat
- 12/13 Cephalexin 500mg BID, PO, 10days
-Continue#D5
#Possible Obstructive Sleep Apnea
-O2 desaturation while sleeping
-O2 prn
-KAMARI testing rec
#Rheumatoid Arthritis
#Fibromyalgia
-Continue Duloxetine
#History of VA (2019)
#Hypertension
- Continue Lisinopril
#Obese BMI 42
-affects all aspects of care
-consulted regarding new lifestyle, weight loss and healthy diet
DVT Prophylaxis: Lovenox
Full Code
Anticipated Discharge: Today
Subjective/Interval History
-
Date of Service: December 18, 2024
She had difficulty with falling a sleep because of pain then she received Toradol and fell a sleep. Denies SOB. Bilateral leg swelling and erythema improved. She wants to go home to celebrate her granddaughter's birthday.
Objective Data
-
Labs:
Laboratory Results
12/18/24
06:35
WBC Pending
Hgb Pending
Hct Pending
Plt Count Pending
Sodium Pending
Potassium Pending
Chloride Pending
Carbon Dioxide Pending
BUN Pending
Creatinine Pending
Glucose Pending
Calcium Pending
Vital Signs:
Vital Signs
Temp Pulse Resp BP Pulse Ox
98.4 F 95 18 115/70 99
12/18/24 03:00 12/18/24 03:00 12/18/24 03:00 12/18/24 03:00 12/18/24 03:00
I&O
12/17/24 12/18/24 12/19/24
06:59 06:59 06:59
Intake Total 1200 / 1200 1200 / 1200
Output Total 850 / 850 2300 / 2300
Balance 350 / 350 -1100 / -1100
Review of Systems
-
History Source: Patient
Constitutional: Reports Sleep Disturbance
EENT: Reports No Symptoms Reported
Respiratory: Reports No Symptoms
Cardiac: Reports Chest Pain
Abdomen/GI: Reports No Symptoms
Breast: Reports No Symptoms
Genitourinary: Reports No Symptoms
Musculoskeletal: Reports Muscle Pain
Skin: Reports No Symptoms
Neuro: Reports No Symptoms
Endocrine: Reports No Symptoms
Hematologic / Lymphatic: Reports No Symptoms
Physical Exam
-
General: Well Developed, Well Nourished and Comfortable
HEENT: Normocephalic and Atraumatic
Respiratory: Clear to Auscultation
Cardiac: Regular Rhythm and S1/S2
Breast: Deferred by me
GI: Soft, Nontender, Nondistended and Normal Bowel Sounds
Rectal: Deferred by Provider
Genito-urinary: Deferred by me
Musculoskeletal: Edema, Left Lower Extrem
Skin: Warm
Neuro: AO x 3
Psych: Calm
[2024-12-18 08:12] LABS: Hematocrit 36.2 % (37.0-47.0); Hemoglobin 11.5 g/dL (12.0-16.0); Mean Corp Hgb Conc. 31.8 g/dL (33.0-37.0); Mean Corpuscular Volume 91.4 fL (81.0-99.0); Platelet Count 270 10^3/uL (130-400); Red Cell Dist. Width 15.0 % (11.5-14.5)
[2024-12-18] MEDS: KEFLEX 500 MG PO (08:26)
[2024-12-18] MEDS: VITAMIN D3 (cholecalciferol) 50 MCG PO (08:26)
[2024-12-18] MEDS: ZESTRIL 10 MG PO (08:26)
[2024-12-18] MEDS: LASIX 20 MG IV (08:26)
[2024-12-18] MEDS: CYMBALTA DELAYED RELEASE 60 MG PO (08:26)
[2024-12-18] MEDS: PROTONIX 40 MG PO (08:26)
[2024-12-18] MEDS: FLUSH (NSS) 1 FLUSH IV (08:27)
[2024-12-18 08:57] LABS: Blood Urea Nitrogen 8 mg/dl (7-17); Calcium 8.7 mg/dl (8.4-10.2); Carbon Dioxide 28 mmol/L (22-30); Chloride 105 mmol/L (98-107); Estimated Creatinine Clearance 104 ml/min; Glucose 98 mg/dl (70-99); Potassium 3.7 mmol/L (3.5-5.1); Sodium 138 mmol/L (135-145); eGFR > 60.00
[2024-12-18 11:00] VITALS: BP 118/70
--- NOTE | 2024-12-18 11:31 | PN.CDI ---
CDI
- -
CDI:
Physician Documentation Request
Admit Date: 12/16/24 14:16
Dear Doctor Matt / Dr. Blake,
Please review the following and provide your response in the progress notes.
Clinical Indicators:
Survey Researcher, 12/17
#...BMI 42.0.
#...Patient admitted to the hospital with SOB, CP, volume overload.
#Current BW: (12/17) 237 lbs 3 oz BMI: 42.0 (obese).
Based on the above and your clinical assessment, please provide an associated diagnosis with the BMI, such as:
BMI, 42.0, obese
BMI is not significant
Other (please specify)
BMI > or = to 40
Overweight
Obesity:
Due to excess calories
Drug induced
Due to other cause
Severe or morbid obesity:
With alveolar hypoventilation (Obesity hypoventilation syndrome)
Without alveolar hypoventilation
Use of terms such as suspected, likely, concern for, or probable (associated with a specific diagnosis that is being evaluated, monitored, or treated as if it exists) are acceptable and can be coded in the inpatient setting, when documented at the
time of discharge.
Thank you,
Diana Reyes RN BSN CCDS
CDI Specialist
Please contact via tiger text
Please use your independent medical judgment in providing your response.
--- NOTE | 2024-12-18 13:25 | W.PN.UPDATE ---
Update Note
Progress Note Update
I have independently evaluated the patient at the bedside. I reviewed the case with the resident and agree with the documentation unless otherwise specified.
AFVSS on RA. States she feels much better today. Request possible discharge as she is having difficulty sleeping in the hospital
AO x 4, NAD, obese habitus. Lungs CTA bilaterally and nonlabored, RRR without murmurs or gallops and normal S1/2. Abdomen benign. Lower extremities with trace edema bilaterally. Palpable pulses, no obvious JVD though limited by habitus. Skin
warm and dry. Neurologically intact
Acute hypoxemic respiratory insufficiency with pleuritic chest pain. Acute HFpEF. Troponin negative x 3, no dynamic ischemic ECG findings nor signs of pericarditis. Has improved with IV Lasix 20 mg twice daily. Was also started on PPI. TTE with
LVEF 58% and concentric LVH. Transition IV Lasix to p.o. 40 mg daily and give prescription for OP BMP in 5 to 7 days. Will facilitate OP cardiology follow-up within the upcoming weeks
Elevated CRP. Has known rheumatoid arthritis which may be contributing. No signs of obvious RA flare as she currently does not complain of joint symptoms. Initially concerned for RA�ILD though she appears without clinical improvement with Lasix
and not immunosuppressive agents. Will continue to monitor inflammatory markers. Will need to have close follow-up with her housekeeping director after discharge
Suspected KAMARI. Noted to have oxygen desaturations while sleeping, improved with nasal cannula placement. Patient would benefit from an OP sleep study for formal diagnosis of sleep apnea and possible prescription for CPAP mask at that time.
Continue with oxygen as needed here
Full code
Expected discharge today with OP cardiology follow-up
Please see resident progress note for more detail when available
--- NOTE | 2024-12-18 14:02 | W.DCSUMMARY ---
Documented by User: Malcolm Gutierrez MD, Resident 12/18/24 17:26
Discharge Summary
Discharge Data
Date of Admission: 12/16/24
Date of Discharge: 12/18/24
-
Pending Results: No
Additional Pending Results:
.
Hospital Course
Discharging Physician : Dr. Malcolm Gutierrez, Dr. Waqas Blake
Disposition : Home
Primary care physician : Brown Sotelo
Principal Discharge diagnosis : Acute hypoxemic respiratory insufficiency with pleuritic chest pain Acute HFpEF, Suspected KAMARI
Chronic Discharge diagnosis : Fibromyalgia, Rheumatoid Arthritis, HTN, Hyperlipidemia, hx of IA
Hospital Course :
The patient presented to the ED on 12/16/2024 with chest pain, shortness of breath, and bilateral leg swelling. Workup showed an elevated D-dimer, but chest CT was negative for pulmonary embolism. EKG was normal. Findings were consistent with volume
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 She was treated with IV Lasix with improvement in SOB, chest pain and decreased leg swelling. Chest pain was controlled with NSAIDs, and oxygen was provided for
sleep apnea. Today on discharge, her IV Lasix changed to PO Lasix 40 mg daily. She had a history of strep throat and remained on antibiotics.
Patient recheck BMP in 5 days and will see her PCP.
Outpatient follow-up was arranged with cardiology.
Outpatient f/u for her rheumatology
Patient will also benefit from outpatient evaluation for possible obstructive sleep apnea and CPAP initiation. She was discharged in stable condition with instructions to follow up within one week of discharge.
Important imaging findings : Chest X-ray: No acute cardiopulmonary process
Chest CT: No evidence of pulmonary embolism. No significant acute abnormality.
ECHO: Normal LVEF 58% with mild concentric left ventricular hypertrophy
Procedure findings : None
Discharge Plan
-
Patient Disposition: Home (Routine Discharge)
Discharge Diagnosis/Procedures: Acute hypoxemic respiratory insufficiency with pleuritic chest pain,
Elevated CRP with history of known rheumatoid arthritis
Suspected KAMARI
Condition: Good
Diet: Low Cholesterol
Activity: No restrictions
Driving Restrictions: As prior to admission
Bathing Restrictions: None
Blood Work: BMP in 5 days and follow up with PCP.
Specialty Instructions: Weigh Daily- Call MD for wt gain/loss 3 lbs overnight/5 lbs in 1 week
Referrals:
Waqas Ashford MD [Active, Cardiology] - 12/26/24 8:40 am
Referral Note: You have a cardiology follow-up appointment at the [facility] and [facility] office in [place], [place]. Please call with questions
Brown Sotelo MD [Family Provider, Internal Medicine]
Additional Discharge Medication Instructions: Follow up with Cardiology on 12/26/24 at 8:40am.
Follow up with rheumatology as discussed within a week.
Repeat BMP in 5 days and follow up with PCP
Take lasix 40mg once a day.
Take Pantoprazole once a day
Finish your cepahlexin antibiotic course
Prescriptions:
New
pantoprazole 40 mg Tablet,Delayed Release (Dr/Ec)
40 mg PO DAILY Qty: 10 0RF
furosemide [Lasix] 40 mg tablet
40 mg PO DAILY Qty: 30 0RF
Continued
duloxetine 60 MG capsule,delayed release(DR/EC)
60 mg PO DAILY
cetirizine [Zyrtec] 10 mg Tablet
10 mg PO HS
lisinopril 10 mg Tablet
10 mg PO DAILY
rosuvastatin 10 mg Tablet
10 mg PO QPM
cholecalciferol (vitamin D3) [Vitamin D3] 50 mcg (2,000 unit) Tablet
50 mcg PO DAILY
cephalexin 500 mg Capsule
500 mg PO BID
Discharge Orders:
Discharge Patient (As Directed); Ordered 12/18/24
Ordered By: Malcolm Gutierrez
Discharge Date and Time
Discharge Date/Time: 12/18/24 15:08
Print Language: MONTSERRATIAN

Documented by User: Aditya Mayers MD, Resident 12/18/24 16:55
Discharge Summary
Discharge Data
Date of Admission: 12/16/24
Date of Discharge: 12/18/24
Discharge Plan
-
Patient Disposition: Home (Routine Discharge)
Discharge Diagnosis/Procedures: Acute hypoxemic respiratory insufficiency with pleuritic chest pain,
Elevated CRP with history of known rheumatoid arthritis
Suspected KAMARI
Condition: Good
Diet: Low Cholesterol
Activity: No restrictions
Driving Restrictions: As prior to admission
Bathing Restrictions: None
Blood Work: BMP in 5 days and follow up with PCP.
Specialty Instructions: Weigh Daily- Call MD for wt gain/loss 3 lbs overnight/5 lbs in 1 week
Referrals:
Waqas Ashford MD [Active, Cardiology] - 12/26/24 8:40 am
Referral Note: You have a cardiology follow-up appointment at the [facility] office in [place], [place]. Please call with questions
Brown Sotelo MD [Family Provider, Internal Medicine]
Additional Discharge Medication Instructions: Follow up with Cardiology on 12/26/24 at 8:40am.
Follow up with rheumatology as discussed within a week.
Repeat BMP in 5 days and follow up with PCP
Take lasix 40mg once a day.
Take Pantoprazole once a day
Finish your cepahlexin antibiotic course
Prescriptions:
New
pantoprazole 40 mg Tablet,Delayed Release (Dr/Ec)
40 mg PO DAILY Qty: 10 0RF
furosemide [Lasix] 40 mg tablet
40 mg PO DAILY Qty: 30 0RF
Continued
duloxetine 60 MG capsule,delayed release(DR/EC)
60 mg PO DAILY
cetirizine [Zyrtec] 10 mg Tablet
10 mg PO HS
lisinopril 10 mg Tablet
10 mg PO DAILY
rosuvastatin 10 mg Tablet
10 mg PO QPM
cholecalciferol (vitamin D3) [Vitamin D3] 50 mcg (2,000 unit) Tablet
50 mcg PO DAILY
cephalexin 500 mg Capsule
500 mg PO BID
Discharge Orders:
Discharge Patient (As Directed); Ordered 12/18/24
Ordered By: Malcolm Gutierrez
Discharge Date and Time
Discharge Date/Time: 12/18/24 15:08
Print Language: MONTSERRATIAN

Documented by User: Waqas Blake DO 12/19/24 14:16
Discharge Summary
Discharge Data
Date of Admission: 12/16/24
Date of Discharge: 12/18/24
Total time spent discharging patient (in min): 32
Discharge Plan
-
Patient Disposition: Home (Routine Discharge)
Discharge Diagnosis/Procedures: Acute hypoxemic respiratory insufficiency with pleuritic chest pain,
Elevated CRP with history of known rheumatoid arthritis
Suspected KAMARI
Condition: Good
Diet: Low Cholesterol
Activity: No restrictions
Driving Restrictions: As prior to admission
Bathing Restrictions: None
Blood Work: BMP in 5 days and follow up with PCP.
Specialty Instructions: Weigh Daily- Call MD for wt gain/loss 3 lbs overnight/5 lbs in 1 week
Referrals:
Waqas Ashford MD [Active, Cardiology] - 12/26/24 8:40 am
Referral Note: You have a cardiology follow-up appointment at the [facility] and [facility] office in [place], [place]. Please call with questions
Brown Sotelo MD [Family Provider, Internal Medicine]
Additional Discharge Medication Instructions: Follow up with Cardiology on 12/26/24 at 8:40am.
Follow up with rheumatology as discussed within a week.
Repeat BMP in 5 days and follow up with PCP
Take lasix 40mg once a day.
Take Pantoprazole once a day
Finish your cepahlexin antibiotic course
Prescriptions:
New
pantoprazole 40 mg Tablet,Delayed Release (Dr/Ec)
40 mg PO DAILY Qty: 10 0RF
furosemide [Lasix] 40 mg tablet
40 mg PO DAILY Qty: 30 0RF
Continued
duloxetine 60 MG capsule,delayed release(DR/EC)
60 mg PO DAILY
cetirizine [Zyrtec] 10 mg Tablet
10 mg PO HS
lisinopril 10 mg Tablet
10 mg PO DAILY
rosuvastatin 10 mg Tablet
10 mg PO QPM
cholecalciferol (vitamin D3) [Vitamin D3] 50 mcg (2,000 unit) Tablet
50 mcg PO DAILY
cephalexin 500 mg Capsule
500 mg PO BID
Discharge Orders:
Discharge Patient (As Directed); Ordered 12/18/24
Ordered By: Malcolm Gutierrez
Discharge Date and Time
Discharge Date/Time: 12/18/24 15:08
Print Language: MONTSERRATIAN
--- NOTE | 2024-12-18 14:10 | CM ---
Met with patient to obtain information for assessment. Patient was with spouse. Patient stated that she lives with her in a two story house with no steps to enter. She described herself as independent with her ADLs, personal care, dressing
and bathing. 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 She drives and can get to her appointments and do all of her own shopping. She has not had VN. She has no DME. She has not been to a SNF.
Plan: Case management will continue to follow and assist with discharge planning. Home today.
[2024-12-18 14:46] VITALS: BP 124/83
== END 2024-12-18 15:08 | disposition home or self-care (01) | DRG 291 ==
LOC: 4 EAST ACU 14:16
PROVIDERS: ADMITTING PHYSICIAN Internal Medicine; ATTENDING PHYSICIAN Internal Medicine; EMERGENCY PHYSICIAN Emergency Medicine; FAMILY PHYSICIAN Internal Medicine Geriatric Medicine
DX: I11.0 Hypertensive heart disease with heart failure (principal); I50.31 Acute diastolic (congestive) heart failure; Z68.41 Body mass index [BMI] 40.0-44.9, adult; M79.7 Fibromyalgia; M06.9 Rheumatoid arthritis, unspecified; R09.02 Hypoxemia; E66.01 Morbid (severe) obesity due to excess calories; J02.0 Streptococcal pharyngitis; R79.82 Elevated C-reactive protein (CRP); E78.00 Pure hypercholesterolemia, unspecified; G47.33 Obstructive sleep apnea (adult) (pediatric); R06.89 Other abnormalities of breathing; E87.70 Fluid overload, unspecified; T38.0X5A Adverse effect of glucocorticoids and synthetic analogues, initial encounter; Y92.9 Unspecified place or not applicable; I25.2 Old myocardial infarction; Z82.49 Family history of ischemic heart disease and other diseases of the circulatory system; Z82.3 Family history of stroke; Z79.52 Long term (current) use of systemic steroids
CPT/HCPCS: 71046; 71275; 80048; 80053; 80061; 83690; 83735; 83880; 84443; 84484; 85025; 85027; 85379; 85652; 86140; 93005; 93306; 96374; 96375; 97161; 97165; 99285; Q9967

== ENCOUNTER → 2025-03-19 12:00 | Outpatient (REF) | payer BC, SELFPAY ==
[2025-03-19 13:35] LABS: Albumin 4.4 g/dl (3.5-5.0); Blood Urea Nitrogen 17 mg/dl (7-17); Calcium 10.2 mg/dl (8.4-10.2); Carbon Dioxide 36 mmol/L (22-30); Chloride 94 mmol/L (98-107); Glucose 139 mg/dl (70-99); Potassium 3.6 mmol/L (3.5-5.1); Sodium 135 mmol/L (135-145); eGFR > 60.00
== END ==
LOC: REG 12:00
PROVIDERS: ATTENDING PHYSICIAN Internal Medicine Geriatric Medicine
DX: I10 Essential (primary) hypertension (principal); E55.9 Vitamin D deficiency, unspecified; E78.2 Mixed hyperlipidemia; R07.9 Chest pain, unspecified; E78.79 Other disorders of bile acid and cholesterol metabolism; Z13.89 Encounter for screening for other disorder; E87.79 Other fluid overload
CPT/HCPCS: 36415; 80069